=== PATIENT | female | born 1980 | race Caucasian/White ===

== ENCOUNTER 2018-05-17 20:38 | Emergency (ER) | payer MEDICAID, OTHER ==
[~2018-05-17] VITALS: Ht 154.9 cm; Wt 63.6 kg
[2018-05-17] MEDS ORDERED: BACITRACIN 0.9 GM PACKET OINTMENT TP ONE (22:15)
[2018-05-17 22:37] VITALS: BP 112/76
== END 2018-05-17 22:40 | disposition home or self-care (01) ==
LOC: EMS 20:39
DX: S61.217A Laceration without foreign body of left little finger without damage to nail, initial encounter (principal); W26.0XXA Contact with knife, initial encounter; Y93.G1 Activity, food preparation and clean up; Y92.69 Other specified industrial and construction area as the place of occurrence of the external cause; Y99.0 Civilian activity done for income or pay

== ENCOUNTER 2019-01-05 18:19 | Emergency (ER) | payer MEDICAID ==
[~2019-01-05] VITALS: Ht 154.9 cm; Wt 63.6 kg
[2019-01-05] MEDS: HYDROCODONE/ACETAMINOPHEN 5-325 MG TABLET PO ONE (23:31)
[2019-01-05] MEDS: DOXYCYCLINE HYCLATE 100 MG CAPSULE PO ONE (23:31)
[2019-01-05] MEDS: LIDOCAINE/PF 1% 2 ML VIAL IM ONE (23:39)
[2019-01-05] MEDS: KETOROLAC TROMETHAMINE 60 MG/2 ML VIAL IM ONE (23:39)
[2019-01-05] MEDS: CefTRIAXone SODIUM 1 GM/VIAL IM ONE (23:39)
[2019-01-06 00:35] VITALS: BP 118/61
== END 2019-01-06 00:36 | disposition home or self-care (01) ==
LOC: EMS 18:21
DX: L03.115 Cellulitis of right lower limb (principal)
CPT/HCPCS: 73630; 81025; 96372; 99283; J0696; J1885; J3490

== ENCOUNTER 2019-01-22 20:09 | Emergency (ER) | payer MEDICAID ==
[~2019-01-22] VITALS: Ht 154.9 cm; Wt 65.9 kg
[2019-01-22 20:31] LABS: GLUCOSE,POINT OF CARE 112 MG/DL (70-110)
[2019-01-22 20:45] LABS: BASOPHILS % (AUTO) 0.6 % (0.0-2.0); EOSINOPHILS % (AUTO) 3.4 % (1.0-6.0); HEMATOCRIT 40.6 % (36-46); HEMOGLOBIN 13.6 g/dL (12.0-16.0); LYMPHOCYTES % (AUTO) 31.1 % (22.0-44.0); MEAN CORPUSCULAR HEMOGLOBIN 31.4 pg (26.0-34.0); MEAN CORPUSCULAR HGB CONC 33.4 G/dL (31.0-37.0); MEAN CORPUSCULAR VOLUME 94 fL (80-100); MONOCYTES # (AUTO) 0.5 K/uL (0.1-1.0); MONOCYTES % (AUTO) 7.2 % (2.0-9.0); NEUTROPHILS # (AUTO) 3.8 K/uL (1.8-7.7); NEUTROPHILS % (AUTO) 57.7 % (40.0-70.0); PLATELET COUNT (AUTO) 345 K/uL (150-450); RED BLOOD CELL COUNT(AUTO) 4.32 MIL/uL (4.00-5.20); RED CELL DISTRIBUTION WIDTH 13.5 % (11.5-14.5)
[2019-01-22 20:55] LABS: ANION GAP 7 mmol/L (8-16); CALCIUM, TOTAL 9.4 mg/dL (8.8-10.5); CARBON DIOXIDE 28 mmol/L (22-29); CHLORIDE 102 mmol/L (98-107); CREATININE 0.78 mg/dL (0.60-1.30); GLOMERULAR FILTR. RATE CALC > 60 mL/min (>60); GLUCOSE,RANDOM 133 mg/dL (70-110); POTASSIUM 3.4 mmol/L (3.5-5.1); SODIUM SERUM 137 mmol/L (136-145); UREA NITROGEN, BLOOD 9 mg/dL (7-18)
[2019-01-22 21:06] LABS: ALANINE AMINOTRANSFERASE 19 U/L (12-78); ALBUMIN 4.1 g/dL (3.4-5.0); ALKALINE PHOSPHATASE 72 U/L (46-116); ASPARTATE AMINOTRANSFERASE 17 U/L (15-37); BILIRUBIN,TOTAL 0.7 mg/dL (0.1-1.0); HCG,QUANTITATIVE < 1 mIU/mL (0-6); TOTAL PROTEIN, SERUM 7.4 g/dL (6.4-8.2)
[2019-01-22] MEDS ORDERED: SODIUM CHLORIDE 0.9% 1,000 ML IV ONE (22:30)
[2019-01-23] LABS: APPEARANCE,URINE CLOUDY (CLEAR); GLUCOSE, URINE (UA) NEGATIVE (NEGATIVE); KETONES,URINE 15 mg/dL (NEGATIVE); LEUKOCYTE ESTERASE ,URINE TRACE (NEGATIVE); NITRATE,URINE NEGATIVE (NEGATIVE); OCCULT BLOOD,URINE NEGATIVE (NEGATIVE); PH,URINE 5.5 (5.0-8.0); PROTEIN,URINE TRACE (NEGATIVE)
[2019-01-23 00:09] LABS: BILIRUBIN,URINE PRELIM. POSITIVE (NEGATIVE)
[2019-01-23 00:15] LABS: BACTERIA,URINE Few /HPF (None Seen); SQUAMOUS EPITHELIAL CELL,UR Many /LPF (None Seen)
[2019-01-23 00:26] VITALS: BP 109/66
== END 2019-01-23 01:02 | disposition home or self-care (01) ==
LOC: EMS 20:11
DX: E86.0 Dehydration (principal); R42 Dizziness and giddiness; R00.1 Bradycardia, unspecified
CPT/HCPCS: 36415; 80053; 81001; 82962; 84702; 85025; 87086; 93005; 99284; J7030

== ENCOUNTER 2023-12-09 22:53 | Emergency (ER) | payer MEDICAID ==
[~2023-12-09] VITALS: Ht 154.9 cm; Wt 81.0 kg
[2023-12-09 23:02] VITALS: TEMP 98
[2023-12-09] MEDS: BACITRACIN 0.9 GM PACKET OINTMENT TP ONE (23:47)
[2023-12-09] MEDS: DOXYCYCLINE HYCLATE 100 MG TABLET PO ONE (23:49)
[2023-12-09] MEDS ORDERED: ACET-3385 PO (23:59)
[2023-12-09] MEDS ORDERED: DOXY-354 PO (23:59)
[2023-12-10 00:09] VITALS: BP 102/89; PULSE 62; RESP 18
== END 2023-12-10 00:10 | disposition home or self-care (01) ==
LOC: EMS 22:54
DX: L03.011 Cellulitis of right finger (principal)
CPT/HCPCS: 10060; 99283